=== PATIENT | female | born 1945 | race Caucasian/White ===

== ENCOUNTER 2016-08-05 05:49 | Day surgery (SDC) | payer MEDICARE ==
[2016-08-05] MEDS ORDERED: ACETAMINOPHEN 1000MG/100 ML PREMIX IV ONE (06:00)
[2016-08-05] MEDS ORDERED: HYDROCODONE/APAP 7.5/325MG TABLET PO ONE (13:46)
[2016-08-05] MEDS ORDERED: KETOROLAC 30 MG/ML VIAL IVP ONE (15:05)
[2016-08-05] MEDS ORDERED: ONDANSETRON HCL IV 4 MG/2 ML VIAL IVP ONE (15:05)
[2016-08-05] MEDS ORDERED: FENTANYL PF 100MCG/2ML VIAL IV ONE (15:05)
[2016-08-05] MEDS ORDERED: PROPOFOL 10 MG/ML VIAL IV ONE (15:05)
[2016-08-05] MEDS ORDERED: LIDOCAINE 2% MDV (20MG/ML) 20ML VIAL IV ONE (15:05)
--- NOTE | 2016-08-06 17:06 | Operative Note ---
DATE OF SURGERY: 08/05/2016 REFERRING PHYSICIAN: Long Matamoros DO PREOPERATIVE DIAGNOSIS: Carpal tunnel syndrome of the right wrist. POSTOPERATIVE DIAGNOSIS: Carpal tunnel syndrome of the right wrist. OPERATIVE PROCEDURE: Decompression, right median nerve at the wrist using 3.5 loop magnification. DESCRIPTION: This 71-year-old female was taken to the operating room and placed in a supine position on the operating room table where general anesthesia was induced. The right upper extremity was elevated. It was prepped with Hibiclens and draped in the usual sterile fashion, exsanguinated, and the tourniquet inflated to 250 mmHg. A palmar incision was utilized following the hypothenar crease from the level of the base of the webspace of the thumb, the flexor crease of the wrist. Dissection was carried down through the skin and subcutaneous tissue to expose the subcutaneous tissue of the palmar fascia, which was divided in line with the skin incision. The flexor retinaculum was identified, punctured, split to its proximal margin, and then with the contents of the carpal tunnel under direct vision, the transverse carpal ligament was transected along its ulnar border. The radial flap was raised to expose the entire median nerve under the transverse carpal ligament, and a recurrent motor branch in the median nerve was identified and found to be normal. The patient did have some mild thickening of the tenosynovium; otherwise, the nerve itself appeared to be normal. No other gross pathology was identified. The wound was irrigated with lactated Ringer's solution. The tourniquet was released and hemostasis obtained with the electrocautery. The wound was closed with interrupted 6-0 nylon sutures. Sterile dressings with plaster splint immobilization was applied with the wrist in slight dorsiflexion and the thumb in an adducted position. The patient was then taken to the recovery room in satisfactory condition. GROSS PATHOLOGY: This patient demonstrated some thickening of the tenosynovium overlying the median nerve, but otherwise normal appearance of the nerve was present and recurrent motor branch also seemed to be apparently normal. CC: Janet ANDRADE
== END 2016-08-05 08:38 | disposition home or self-care (01) ==
LOC: SUR 05:49
PROVIDERS: ATTEND Orthopaedic Surgery
DX: G56.01 Carpal tunnel syndrome, right upper limb (principal); I10 Essential (primary) hypertension
CPT/HCPCS: J1885; J2405

== ENCOUNTER 2016-09-09 08:24 | Day surgery (SDC) | payer MEDICARE ==
[~2016-09-09 08:24] MED LIST: ACETAMINOPHEN 1,000 MG/100 ML BTL IV ONE
[2016-09-09] MEDS ORDERED: ROPIVACAINE HCL (NAROPIN) /PF 5MG/ML 20ML VIAL IV ONE ×2 (14:00→14:12)
[2016-09-09] MEDS ORDERED: FENTANYL PF 100MCG/2ML VIAL IV ONE (14:00)
[2016-09-09] MEDS ORDERED: ONDANSETRON HCL IV 4 MG/2 ML VIAL IVP ONE (14:00)
[2016-09-09] MEDS ORDERED: PROPOFOL 10 MG/ML VIAL IV ONE (14:00)
[2016-09-09] MEDS ORDERED: LIDOCAINE 2% MDV (20MG/ML) 20ML VIAL IV ONE (14:00)
[2016-09-09] MEDS ORDERED: SEVOFLURANE 250 ML INH ONE (14:00)
[2016-09-09] MEDS ORDERED: KETOROLAC 30 MG/ML VIAL IVP ONE (14:00)
[2016-09-09] MEDS ORDERED: MIDAZOLAM HCL 2MG/2ML VIAL IV ONE (14:00)
--- NOTE | 2016-09-14 15:51 | Operative Note ---
DATE OF SURGERY: 09/09/2016 Surgeon: Kirby Ortega DO PREOPERATIVE DIAGNOSIS: Carpal tunnel syndrome, left wrist. POSTOPERATIVE DIAGNOSIS: Carpal tunnel syndrome, left wrist. OPERATION: Decompression of left median nerve of the wrist using 3.5 loop magnification. PROCEDURE: This 71-year-old female was taken to the operating room, placed in a supine position on the operating room table where general anesthesia was induced. The left upper extremity was elevated. It was prepped with Hibiclens and draped in the usual sterile fashion. A palmar incision was utilized following hypothenar crease from the level of the base of the web space of the thumb to the flexor crease at the wrist. Dissection carried down through the skin and subcutaneous tissue. Hemostasis obtained with the electrocautery. Palmar fascia was divided in line with the skin incision to expose the flexor retinaculum. This was punctured, split to its proximal margin, and then when the contents of the carpal tunnel under direct vision the transverse carpal ligament was transected along its ulnar border and the radial flap was raised to expose the entire median nerve under the transverse carpal ligament. The nerve itself appeared to be normal other than very minimal amount of atrophy of the nerve. The recurrent motor branch was seen to be intact. The tourniquet was subsequently released and hemostasis obtained with the electrocautery. The wound was irrigated with lactated Ringer solution and the wound closed with interrupted 6-0 nylon suture. Sterile dressings were applied with plaster splint immobilization with the wrist in slight dorsiflexion and the thumb in an adducted position. The patient was then taken to the recovery room in satisfactory condition. GROSS PATHOLOGY: The patient had very minimal atrophy of the median nerve but otherwise appeared to be normal. The operative procedure was performed under 3.5 loop magnification. CC: Janet ANDRADE
== END 2016-09-09 11:50 | disposition home or self-care (01) ==
LOC: SUR 08:24
PROVIDERS: ATTEND Orthopaedic Surgery
DX: G56.02 Carpal tunnel syndrome, left upper limb (principal); I10 Essential (primary) hypertension
CPT/HCPCS: 64721; 01810; 64450; J1885; J2405; J3010; J2795; 01992; 76942

== ENCOUNTER 2016-10-03 15:58 | Emergency (ER) | payer MEDICARE ==
--- NOTE | 2016-10-03 18:03 | Emergency Department Record ---
History of Present Illness - General Chief complaint: Bite Insect/other Stated complaint: INSECT BITE LT FOOT Time Seen by Provider: 10/03/16 17:53 Mode of Arrival: Ambulatory - History of Present Illness Initial comments: ulcer on left ankle which started as a blister and than started neosporin but she is allergic to that and came i to the ED today and patient stated she removed the blister on tues and using peroxide and salve every day. Onset/Timin -: Days(s) Hx Tetanus Toxoid Vaccination: Yes Year of Tetanus Vaccination: unkown Location: LLE, R foot Consistency: Constant Improves with: None Worsens with: None Associated symptoms: Itching Treatments Prior to Arrival: OTC topical medication - Related Data Home Medications Medication Instructions Recorded Confirmed Last Taken Amlodipine Besylate [Amlodipine 5 mg PO DAILY 11/14/13 10/03/16 10/03/16 Besylate] Bupropion HCl [Bupropion HCl Sr] 150 mg PO BID 11/15/14 10/03/16 10/03/16 Temazepam [Restoril] 30 mg PO QHS PRN 11/15/14 10/03/16 10/03/16 Loperamide HCl [Immodium] 2 mg PO BID PRN 05/25/15 10/03/16 10/03/16 Aspirin [Adult Low Dose Aspirin EC] 81 mg PO DAILY 07/03/16 10/03/16 10/03/16 Calcium Carbonate/Vitamin D3 2 each PO DAILY 07/03/16 10/03/16 10/03/16 [Oyster Shell Calcium-Vit D Tab] Ferrous Sulfate [High Potency Iron] 1 tab PO DAILY 07/03/16 10/03/16 10/03/16 Hydrocodone/Acetaminophen 1 tab PO ASDIR 07/03/16 10/03/16 10/03/16 [Hydrocodon-Acetaminophn 10-325] Melatonin 5 mg PO QHS 07/03/16 10/03/16 10/03/16 Tramadol HCl 50 mg PO ASDIR 07/03/16 10/03/16 10/03/16 Cyanocobalamin (Vitamin B-12) 2,500 mcg PO DAILY 10/03/16 10/03/16 10/03/16 [Vitamin B12] Previous Rx's Medication Instructions Recorded Lorazepam [Ativan] 1 mg PO Q12H PRN #6 tab 11/15/14 Cephalexin [Keflex] 500 mg PO TID #30 cap 10/03/16 Sulfamethoxazole/Trimethoprim 1 each PO BID #20 tablet 10/03/16 [Bactrim Ds Tablet] Allergies Allergy/AdvReac Type Severity Reaction Status Date / Time bacitracin Allergy Unknown ITCHING Verified 10/03/16 17:11 [From NEOSPORIN ([id number])] bacitracin zinc Allergy Unknown ITCHING Verified 10/03/16 17:11 [From NEOSPORIN ([id number])] neomycin sulfate Allergy Unknown ITCHING Verified 10/03/16 17:11 [From NEOSPORIN ([id number])] polymyxin B Allergy Unknown ITCHING Verified 10/03/16 17:11 [From NEOSPORIN ([id number])] Travel Screening - Travel/Exposure Within Last 30 Days Have you traveled within the last 30 days?: No - Travel/Exposure Within Last Year Have you traveled outside the [place] in the last year?: No - Additonal Travel Details Have you been exposed to anyone with a communicable illness?: No Review of Systems Reviewed: No additional complaints except as noted below Constitutional: Reports: As per HPI. Denies: Chills, Fever, Malaise, Night sweats, Weakness, Weight change Eyes: Reports: As per HPI. Denies: Eye discharge, Eye pain, Photophobia, Vision change ENT: Reports: As per HPI. Denies: Congestion, Dental pain, Ear pain, Epistaxis , Hearing loss, Throat pain Respiratory: Reports: As per HPI. Denies: Cough, Dyspnea, Hemoptysis, Stridor, Wheezes Cardiovascular: Reports: As per HPI. Denies: Arrhythmia, Chest pain, Dyspnea on exertion, Edema, Murmurs, Orthopnea, Palpitations, Paroxysmal nocturnal dyspnea, Rheumatic Fever, Syncope Endocrine: Reports: As per HPI. Denies: Fatigue, Heat or cold intolerance, Polydipsia, Polyuria Gastrointestinal: Reports: As per HPI. Denies: Abdominal pain, Constipation, Diarrhea, Hematemesis, Hematochezia, Melena, Nausea, Vomiting Genitourinary: Reports: As per HPI. Denies: Abnormal menses, Discharge, Dyspareunia, Dysuria, Frequency, Hematuria, Incontinence, Retention, Urgency Musculoskeletal: Reports: As per HPI. Denies: Arthralgia, Back pain, Gout, Joint swelling, Myalgia, Neck pain Skin: Reports: As per HPI, Lesions. Denies: Bruising, Change in color, Change in hair/nails, Pruritus, Rash Neurological: Reports: As per HPI. Denies: Abnormal gait, Confusion, Headache, Numbness, Paresthesias, Seizure, Tingling, Tremors, Vertigo, Weakness Psychiatric: Reports: As per HPI. Denies: Anxiety, Auditory hallucinations, Depression, Homicidal thoughts, Suicidal thoughts, Visual hallucinations Hematological/Lymphatic: Reports: As per HPI. Denies: Anemia, Blood Clots, Easy bleeding, Easy bruising, Swollen glands Past Medical History - SOCIAL HISTORY Smoking Status: Never smoker Alcohol Use: None Drug Use: None - RESPIRATORY Hx Respiratory Disorders: Yes Hx of CPAP: Yes (difficult time wearing mask-doesn't use it) - CARDIOVASCULAR Hx Cardio Disorders: Yes Comment:: "I have a bad back" - NEURO Hx Neuro Disorders: Yes Hx of Migraines: Yes - GI Hx GI Disorders: Yes Hx Diverticulitis: Yes Hx Irritable Bowel: Yes (daily Immodium helps alot) Hx Ulcer: Yes (bleeding ulcer 2011) - Hx Genitourinary Disorders: No - ENDOCRINE Hx Endocrine Disorders: Yes Hx Diabetes: Yes (last A1c 5.5) - MUSCULOSKELETAL Hx Musculoskeletal Disorders: Yes Hx Arthritis: Yes (all over) Hx Back Injury: Yes (fell down a flight of stairs 30 yrs ago) Comment:: right carpal tunnel syndrome - PSYCH Hx Psych Problems: Yes Hx Anxiety: Yes Hx Depression: Yes - HEMATOLOGY/ONCOLOGY Hx Hematology/Oncology Disorders: Yes Hx Anemia: Yes Family Medical History Any Significant Family History?: No Hx Cancer: Father, Mother Hx HTN: Brother/Sister Physical Exam - General General Appearance: Alert, Oriented x3, Cooperative, No acute distress - Head Head exam: Normal inspection - Eye Eye exam: Normal appearance, PERRL Pupils: Normal accommodation - ENT ENT exam: Normal exam, Mucous membranes moist, Normal external ear exam, Normal orophraynx, TM's normal bilaterally Ear exam: Normal external inspection. negative: External canal tenderness Nasal Exam: Normal inspection. negative: Discharge, Sinus tenderness Mouth exam: Normal external inspection, Tongue normal Teeth exam: Normal inspection. negative: Dental caries Throat exam: Normal inspection. negative: Tonsillar erythema, Tonsillar exudate - Neck Neck exam: Normal inspection, Full ROM. negative: Tenderness - Respiratory Respiratory exam: Normal lung sounds bilaterally. negative: Respiratory distress - Cardiovascular Cardiovascular Exam: Regular rate, Normal rhythm, Normal heart sounds - GI/Abdominal GI/Abdominal exam: Soft, Normal bowel sounds. negative: Tenderness - Rectal Rectal exam: Deferred - exam: Deferred - Extremities Extremities exam: Normal inspection, Full ROM, Normal capillary refill. negative: Tenderness - Back Back exam: Reports: Normal inspection, Full ROM. Denies: Muscle spasm, Rash noted, Tenderness - Neurological Neurological exam: Alert, Normal gait, Oriented X3, Reflexes normal - Psychiatric Psychiatric exam: Normal affect, Normal mood - Skin Skin exam: Other (ulcer on the right ankle size of a dime) Course Vital Signs 10/03/16 16:44 Temperature 98.7 F Pulse Rate [ 103 H Pulse Ox Probe] Respiratory 21 Rate Blood Pressure 143/87 [Left Arm] Pulse Ox 95 Disposition Clinical Impression: Ulcer Insect bite Qualifiers: Encounter type: initial encounter Qualified Code(s): W57.XXXA - Bitten or stung by nonvenomous insect and other nonvenomous arthropods, initial encounter Condition: (1) Good Instructions: Insect Bite or Sting (ED) Additional Instructions: follow up with Dr. Matamoros in 3 days. wash twice a day with soap Prescriptions: Cephalexin [Keflex] 500 mg PO TID #30 cap Sulfamethoxazole/Trimethoprim [Bactrim Ds Tablet] 1 each PO BID #20 tablet Forms: Patient Portal Access Time of Disposition: 18:05
[2016-10-03] MEDS ORDERED: TMP/SMZ 160MG/800MG TAB PO ONE (18:05)
[2016-10-03] MEDS ORDERED: CEPHALEXIN 500 MG CAPSULE PO STA (18:05)
== END 2016-10-03 18:27 | disposition home or self-care (01) ==
LOC: ER 15:58
DX: E11.621 Type 2 diabetes mellitus with foot ulcer (principal); L97.529 Non-pressure chronic ulcer of other part of left foot with unspecified severity; W57.XXXA Bitten or stung by nonvenomous insect and other nonvenomous arthropods, initial encounter
CPT/HCPCS: 99282

== ENCOUNTER 2017-02-20 12:52 | Emergency (ER) | payer MEDICARE ==
[2017-02-20] MEDS ORDERED: KETOROLAC 30 MG/ML VIAL IM ONE (13:35)
--- NOTE | 2017-02-20 13:35 | Emergency Department Record ---
History of Present Illness - General Chief complaint: Pain Stated complaint: RT HIP/LOWER BACK PAIN Time Seen by Provider: 02/20/17 13:21 Source: Patient Mode of Arrival: Ambulatory Limitations: No limitations - History of Present Illness Initial comments: pt states she is in horrible pain in her hip from chronic issues. she has been scheduled for surgery but is going thru physical therapy first. she states she has been on pain pills for a long time and that her dr took her off them 3 days ago because she has been taking too many. she states the pain is unbearable and she has been having diarrhea. MD Complaint: Joint pain -: Unknown Severity scale (1-10): 10 Quality: Sharp Consistency: Constant Improves with: Nothing Worsens with: Exertion, Walking Associated Symptoms: Denies other symptoms - Related Data Previous Rx's Medication Instructions Recorded Lorazepam [Ativan] 1 mg PO Q12H PRN #6 tab 11/15/14 Gabapentin [Neurontin] 100 mg PO TID #14 capsule 02/20/17 Hydrocodone/Acetaminophen [[place] 1 each PO BID #7 tablet 02/20/17 5-325 Tablet] Lidocaine Patch [Lidoderm] 1 ea TOP DAILY #3 patch 02/20/17 Allergies Allergy/AdvReac Type Severity Reaction Status Date / Time bacitracin Allergy Unknown ITCHING Verified 02/20/17 13:00 [From NEOSPORIN ([id number])] bacitracin zinc Allergy Unknown ITCHING Verified 02/20/17 13:00 [From NEOSPORIN ([id number])] neomycin sulfate Allergy Unknown ITCHING Verified 02/20/17 13:00 [From NEOSPORIN ([id number])] polymyxin B Allergy Unknown ITCHING Verified 02/20/17 13:00 [From NEOSPORIN ([id number])] Travel Screening - Travel/Exposure Within Last 30 Days Have you traveled within the last 30 days?: No - Travel/Exposure Within Last Year Have you traveled outside the [place] in the last year?: No - Additonal Travel Details Have you been exposed to anyone with a communicable illness?: No - Travel Symptoms Symptom Screening: None Review of Systems Reviewed: No additional complaints except as noted below Constitutional: Reports: As per HPI. Denies: Chills, Fever, Malaise, Night sweats, Weakness, Weight change Eyes: Reports: As per HPI. Denies: Eye discharge, Eye pain, Photophobia, Vision change ENT: Reports: As per HPI. Denies: Congestion, Dental pain, Ear pain, Epistaxis , Hearing loss, Throat pain Respiratory: Reports: As per HPI. Denies: Cough, Dyspnea, Hemoptysis, Stridor, Wheezes Cardiovascular: Reports: As per HPI. Denies: Arrhythmia, Chest pain, Dyspnea on exertion, Edema, Murmurs, Orthopnea, Palpitations, Paroxysmal nocturnal dyspnea, Rheumatic Fever, Syncope Endocrine: Reports: As per HPI. Denies: Fatigue, Heat or cold intolerance, Polydipsia, Polyuria Gastrointestinal: Reports: As per HPI. Denies: Abdominal pain, Constipation, Diarrhea, Hematemesis, Hematochezia, Melena, Nausea, Vomiting Genitourinary: Reports: As per HPI. Denies: Abnormal menses, Discharge, Dyspareunia, Dysuria, Frequency, Hematuria, Incontinence, Retention, Urgency Musculoskeletal: Reports: As per HPI. Denies: Arthralgia, Back pain, Gout, Joint swelling, Myalgia, Neck pain Skin: Reports: As per HPI. Denies: Bruising, Change in color, Change in hair/ nails, Lesions, Pruritus, Rash Neurological: Reports: As per HPI. Denies: Abnormal gait, Confusion, Headache, Numbness, Paresthesias, Seizure, Tingling, Tremors, Vertigo, Weakness Psychiatric: Reports: As per HPI. Denies: Anxiety, Auditory hallucinations, Depression, Homicidal thoughts, Suicidal thoughts, Visual hallucinations Hematological/Lymphatic: Reports: As per HPI. Denies: Anemia, Blood Clots, Easy bleeding, Easy bruising, Swollen glands Past Medical History - SOCIAL HISTORY Smoking Status: Never smoker Alcohol Use: None Drug Use: None - RESPIRATORY Hx Respiratory Disorders: Yes Hx of CPAP: Yes (difficult time wearing mask-doesn't use it) - CARDIOVASCULAR Hx Cardio Disorders: Yes Comment:: "I have a bad back" - NEURO Hx Neuro Disorders: Yes Hx of Migraines: Yes - GI Hx GI Disorders: Yes Hx Diverticulitis: Yes Hx Irritable Bowel: Yes (daily Immodium helps alot) Hx Ulcer: Yes (bleeding ulcer 2011) - Hx Genitourinary Disorders: No - ENDOCRINE Hx Endocrine Disorders: Yes Hx Diabetes: Yes (last A1c 5.5) - MUSCULOSKELETAL Hx Musculoskeletal Disorders: Yes Hx Arthritis: Yes (all over) Hx Back Injury: Yes (fell down a flight of stairs 30 yrs ago) Comment:: right carpal tunnel syndrome - PSYCH Hx Psych Problems: Yes Hx Anxiety: Yes Hx Depression: Yes - HEMATOLOGY/ONCOLOGY Hx Hematology/Oncology Disorders: Yes Hx Anemia: Yes Family Medical History Any Significant Family History?: Yes Hx Cancer: Father, Mother Hx HTN: Brother/Sister Physical Exam - General General Appearance: Alert, Oriented x3, Cooperative, Moderate distress - Head Head exam: Normal inspection - Eye Eye exam: Normal appearance, PERRL, EOMI Pupils: Normal accommodation - ENT ENT exam: Normal exam, Mucous membranes moist, Normal external ear exam, Normal orophraynx, TM's normal bilaterally Ear exam: Normal external inspection. negative: External canal tenderness Nasal Exam: Normal inspection. negative: Discharge, Sinus tenderness Mouth exam: Normal external inspection, Tongue normal Teeth exam: Normal inspection. negative: Dental caries Throat exam: Normal inspection. negative: Tonsillar erythema, Tonsillar exudate - Neck Neck exam: Normal inspection, Full ROM. negative: Tenderness - Respiratory Respiratory exam: Normal lung sounds bilaterally. negative: Respiratory distress - Cardiovascular Cardiovascular Exam: Regular rate, Normal rhythm, Normal heart sounds - GI/Abdominal GI/Abdominal exam: Soft, Normal bowel sounds. negative: Tenderness - Rectal Rectal exam: Deferred - exam: Deferred - Extremities Extremities exam: Normal inspection, Normal capillary refill, Tenderness. negative: Full ROM - Back Back exam: Reports: Normal inspection, Full ROM. Denies: Muscle spasm, Rash noted, Tenderness - Neurological Neurological exam: Alert, CN II-XII intact, Normal gait, Oriented X3 - Psychiatric Psychiatric exam: Normal affect, Normal mood - Skin Skin exam: Dry, Intact, Normal color, Warm Course Vital Signs 02/20/17 13:05 Temperature 98.2 F Pulse Rate 95 H Respiratory 18 Rate Blood Pressure 163/100 Pulse Ox 97 Disposition Disposition: Discharge Clinical Impression: Narcotic withdrawal Hip pain Qualifiers: Laterality: right Qualified Code(s): M25.551 - Pain in right hip Disposition: Home, Self-Care Condition: (1) Good Instructions: Pain Management in the Elderly (ED), Opioid Withdrawal (ED), Gabapentin (By mouth) Additional Instructions: follow up with family doctor and with orthopedic doctor.. return sooner if worse. moist heat to hip. taper norco down. Prescriptions: Gabapentin [Neurontin] 100 mg PO TID #14 capsule Hydrocodone/Acetaminophen [[place] 5-325 Tablet] 1 each PO BID #7 tablet Lidocaine Patch [Lidoderm] 1 ea TOP DAILY #3 patch Forms: Patient Portal Access Quality - Quality Measures Quality Measures: N/A - Blood Pressure Screening Does Patient Have Any of the Following: No Blood Pressure Classification: Hypertensive Reading Systolic Measurement: 163 Diastolic Measurement: 100 Screening for High Blood Pressure: < First Hypertensive BP, F/U Documented > [ [id number]] First Hypertensive Follow-up Interventions: Follow-up with rescreen GT 1 day and LT 4 weeks.
== END 2017-02-20 14:24 | disposition home or self-care (01) ==
LOC: ER 12:52
DX: F11.23 Opioid dependence with withdrawal (principal); K52.1 Toxic gastroenteritis and colitis; T40.2X5A Adverse effect of other opioids, initial encounter; G89.29 Other chronic pain; M25.551 Pain in right hip
CPT/HCPCS: 99283 ×2; 96372; J1885

== ENCOUNTER 2017-03-30 12:42 | Emergency (ER) | payer MEDICARE ==
--- NOTE | 2017-03-30 13:37 | Emergency Department Record ---
History of Present Illness - General Chief complaint: Lower Extremity Pain Stated complaint: RT UPPER LEG PAIN Time Seen by Provider: 03/30/17 12:54 Mode of Arrival: Ambulatory - History of Present Illness Onset/Timin -: Days(s) Location: Right, Thigh History of Same: No Severity scale (1-10): 10 Quality: Aching Consistency: Constant Improves with: Nothing Worsens with: Walking, Weight bearing Associated Symptoms: Denies other symptoms - Related Data Previous Rx's Medication Instructions Recorded Lorazepam [Ativan] 1 mg PO Q12H PRN #6 tab 11/15/14 Gabapentin [Neurontin] 100 mg PO TID #14 capsule 02/20/17 Famciclovir 500 mg PO TID #28 tablet 03/30/17 Allergies Allergy/AdvReac Type Severity Reaction Status Date / Time bacitracin Allergy Unknown ITCHING Verified 02/20/17 13:00 [From NEOSPORIN ([id number])] bacitracin zinc Allergy Unknown ITCHING Verified 02/20/17 13:00 [From NEOSPORIN ([id number])] neomycin sulfate Allergy Unknown ITCHING Verified 02/20/17 13:00 [From NEOSPORIN ([id number])] polymyxin B Allergy Unknown ITCHING Verified 02/20/17 13:00 [From NEOSPORIN ([id number])] Travel Screening - Travel/Exposure Within Last 30 Days Have you traveled within the last 30 days?: No Review of Systems Reviewed: No additional complaints except as noted below Constitutional: Reports: As per HPI. Denies: Chills, Fever, Malaise, Night sweats, Weakness, Weight change Eyes: Reports: As per HPI. Denies: Eye discharge, Eye pain, Photophobia, Vision change ENT: Reports: As per HPI. Denies: Congestion, Dental pain, Ear pain, Epistaxis , Hearing loss, Throat pain Respiratory: Reports: As per HPI. Denies: Cough, Dyspnea, Hemoptysis, Stridor, Wheezes Cardiovascular: Reports: As per HPI. Denies: Arrhythmia, Chest pain, Dyspnea on exertion, Edema, Murmurs, Orthopnea, Palpitations, Paroxysmal nocturnal dyspnea, Rheumatic Fever, Syncope Endocrine: Reports: As per HPI. Denies: Fatigue, Heat or cold intolerance, Polydipsia, Polyuria Gastrointestinal: Reports: As per HPI. Denies: Abdominal pain, Constipation, Diarrhea, Hematemesis, Hematochezia, Melena, Nausea, Vomiting Genitourinary: Reports: As per HPI. Denies: Abnormal menses, Discharge, Dyspareunia, Dysuria, Frequency, Hematuria, Incontinence, Retention, Urgency Musculoskeletal: Reports: As per HPI. Denies: Arthralgia, Back pain, Gout, Joint swelling, Myalgia, Neck pain Skin: Reports: As per HPI, Rash (right thigh area). Denies: Bruising, Change in color, Change in hair/nails, Lesions, Pruritus Neurological: Reports: As per HPI. Denies: Abnormal gait, Confusion, Headache, Numbness, Paresthesias, Seizure, Tingling, Tremors, Vertigo, Weakness Psychiatric: Reports: As per HPI. Denies: Anxiety, Auditory hallucinations, Depression, Homicidal thoughts, Suicidal thoughts, Visual hallucinations Hematological/Lymphatic: Reports: As per HPI. Denies: Anemia, Blood Clots, Easy bleeding, Easy bruising, Swollen glands Past Medical History - SOCIAL HISTORY Smoking Status: Never smoker Alcohol Use: None Drug Use: None - RESPIRATORY Hx Respiratory Disorders: Yes Hx of CPAP: Yes (difficult time wearing mask-doesn't use it) - CARDIOVASCULAR Hx Cardio Disorders: Yes Comment:: "I have a bad back" - NEURO Hx Neuro Disorders: Yes Hx of Migraines: Yes - GI Hx GI Disorders: Yes Hx Diverticulitis: Yes Hx Irritable Bowel: Yes (daily Immodium helps alot) Hx Ulcer: Yes (bleeding ulcer 2011) - Hx Genitourinary Disorders: No - ENDOCRINE Hx Endocrine Disorders: Yes Hx Diabetes: Yes (last A1c 5.5) - MUSCULOSKELETAL Hx Musculoskeletal Disorders: Yes Hx Arthritis: Yes (all over) Hx Back Injury: Yes (fell down a flight of stairs 30 yrs ago) Comment:: right carpal tunnel syndrome - PSYCH Hx Psych Problems: Yes Hx Anxiety: Yes Hx Depression: Yes - HEMATOLOGY/ONCOLOGY Hx Hematology/Oncology Disorders: Yes Hx Anemia: Yes Family Medical History Any Significant Family History?: Yes Hx Cancer: Father, Mother Hx HTN: Brother/Sister Physical Exam - General General Appearance: Alert, Oriented x3, Cooperative, No acute distress - Head Head exam: Normal inspection - Eye Eye exam: Normal appearance, PERRL Pupils: Normal accommodation - ENT ENT exam: Normal exam, Mucous membranes moist, Normal external ear exam, Normal orophraynx, TM's normal bilaterally Ear exam: Normal external inspection. negative: External canal tenderness Nasal Exam: Normal inspection. negative: Discharge, Sinus tenderness Mouth exam: Normal external inspection, Tongue normal Teeth exam: Normal inspection. negative: Dental caries Throat exam: Normal inspection. negative: Tonsillar erythema, Tonsillar exudate - Neck Neck exam: Normal inspection, Full ROM. negative: Tenderness - Respiratory Respiratory exam: Normal lung sounds bilaterally. negative: Respiratory distress - Cardiovascular Cardiovascular Exam: Regular rate, Normal rhythm, Normal heart sounds - GI/Abdominal GI/Abdominal exam: Soft, Normal bowel sounds. negative: Tenderness - Rectal Rectal exam: Deferred - exam: Deferred - Extremities Extremities exam: Normal inspection, Full ROM, Normal capillary refill, Tenderness (right thigh pain ansd rash over the pain) - Back Back exam: Reports: Normal inspection, Full ROM. Denies: Muscle spasm, Rash noted, Tenderness - Neurological Neurological exam: Alert, Normal gait, Oriented X3, Reflexes normal - Psychiatric Psychiatric exam: Normal affect, Normal mood - Skin Skin exam: Dry, Intact, Normal color, Warm Course Vital Signs 03/30/17 12:57 Temperature 97.8 F Pulse Rate 125 H Respiratory 20 Rate Blood Pressure 156/118 Pulse Ox 93 L Disposition Clinical Impression: Pain in right thigh Shingles Qualifiers: Herpes zoster complications: without complications Qualified Code(s): B02.9 - Zoster without complications Disposition: Home, Self-Care Condition: (1) Good Instructions: Shingles (ED) Additional Instructions: follow up with family Dr. salcido 2 pill twice a day Prescriptions: Famciclovir 500 mg PO TID #28 tablet Forms: Patient Portal Access Time of Disposition: 13:36 Quality - Quality Measures Quality Measures: N/A - Blood Pressure Screening Does Patient Have Any of the Following: No Blood Pressure Classification: Hypertensive Reading Systolic Measurement: 156 Diastolic Measurement: 118 Screening for High Blood Pressure: < First Hypertensive BP, F/U Documented > [ G8950] First Hypertensive Follow-up Interventions: Referral to alternative/primary care provider.
[2017-03-30] MEDS: KETOROLAC 60 MG/2 ML VIAL IM STA (13:41)
== END 2017-03-30 14:06 | disposition home or self-care (01) ==
LOC: ER 12:42
DX: B02.9 Zoster without complications (principal); M79.651 Pain in right thigh
CPT/HCPCS: 96372; 99283; J1885

== ENCOUNTER 2017-04-07 16:07 | Emergency (ER) | payer MEDICARE ==
--- NOTE | 2017-04-07 16:35 | Emergency Department Record ---
History of Present Illness - General Chief complaint: Extremity Problem Stated complaint: PAIN IN RT THEIGH Time Seen by Provider: 04/07/17 16:31 Source: Patient Mode of Arrival: Ambulatory Limitations: No limitations - History of Present Illness Initial comments: The patient is here due to R thigh pain for 3-4 days. The patient was recently here in the ER 8 days ago and diagnosed with Shingles to the anterior proximal R thigh. She is still on her antivirals and now is having increased pain to the anterior mid to distal thigh. The rash has resolved but the pain is worsening. She denies any weakness, numbness, or tingling to the lower leg. The patient also denies any trauma or injury. MD Complaint: Extremity pain Onset/Timin -: Days(s) Location: Right, Thigh History of Same: Yes Severity scale (1-10): 10 Quality: Stabbing Consistency: Constant Improves with: Nothing Worsens with: Nothing Associated Symptoms: Denies other symptoms - Related Data Previous Rx's Medication Instructions Recorded Lorazepam [Ativan] 1 mg PO Q12H PRN #6 tab 11/15/14 Gabapentin [Neurontin] 100 mg PO TID #14 capsule 02/20/17 Famciclovir 500 mg PO TID #28 tablet 03/30/17 Lidocaine Patch [Lidoderm] 1 ea TOP DAILY #7 patch 04/07/17 Naproxen [Naprosyn] 250 mg PO BID #14 tablet 04/07/17 Allergies Allergy/AdvReac Type Severity Reaction Status Date / Time bacitracin Allergy Unknown ITCHING Verified 04/07/17 16:12 [From NEOSPORIN ([id number])] bacitracin zinc Allergy Unknown ITCHING Verified 04/07/17 16:12 [From NEOSPORIN ([id number])] neomycin sulfate Allergy Unknown ITCHING Verified 04/07/17 16:12 [From NEOSPORIN ([id number])] polymyxin B Allergy Unknown ITCHING Verified 04/07/17 16:12 [From NEOSPORIN ([id number])] Travel Screening - Travel/Exposure Within Last 30 Days Have you traveled within the last 30 days?: No - Travel/Exposure Within Last Year Have you traveled outside the [place] in the last year?: No - Additonal Travel Details Have you been exposed to anyone with a communicable illness?: No - Travel Symptoms Symptom Screening: None Review of Systems Constitutional: Denies: Chills, Fever Eyes: Denies: Eye discharge ENT: Denies: Congestion Respiratory: Denies: Cough Past Medical History - SOCIAL HISTORY Smoking Status: Never smoker Alcohol Use: None Drug Use: None - RESPIRATORY Hx Respiratory Disorders: Yes Hx of CPAP: Yes (difficult time wearing mask-doesn't use it) - CARDIOVASCULAR Hx Cardio Disorders: Yes Comment:: "I have a bad back" - NEURO Hx Neuro Disorders: Yes Hx of Migraines: Yes - GI Hx GI Disorders: Yes Hx Diverticulitis: Yes Hx Irritable Bowel: Yes (daily Immodium helps alot) Hx Ulcer: Yes (bleeding ulcer 2011) - Hx Genitourinary Disorders: No - ENDOCRINE Hx Endocrine Disorders: Yes Hx Diabetes: Yes (last A1c 5.5) - MUSCULOSKELETAL Hx Musculoskeletal Disorders: Yes Hx Arthritis: Yes (all over) Hx Back Injury: Yes (fell down a flight of stairs 30 yrs ago) Comment:: right carpal tunnel syndrome - PSYCH Hx Psych Problems: Yes Hx Anxiety: Yes Hx Depression: Yes - HEMATOLOGY/ONCOLOGY Hx Hematology/Oncology Disorders: Yes Hx Anemia: Yes Family Medical History Any Significant Family History?: Yes Hx Cancer: Father, Mother Hx HTN: Brother/Sister Physical Exam - General General Appearance: Alert, Cooperative, No acute distress - Head Head exam: Atraumatic, Normocephalic, Normal inspection - Eye Eye exam: Normal appearance, PERRL - Neck Neck exam: Normal inspection, Full ROM. negative: Tenderness - Respiratory Respiratory exam: Normal lung sounds bilaterally. negative: Respiratory distress - Cardiovascular Cardiovascular Exam: Regular rate, Normal rhythm, Normal heart sounds - GI/Abdominal GI/Abdominal exam: Soft, Normal bowel sounds. negative: Tenderness - Extremities Extremities exam: Normal inspection, Full ROM, Normal capillary refill, Tenderness (There is tenderness to the anterior R mid to distal thigh. There is no swelling, bruising, erythema or lesions appreciated.), Other (The RLE is NVI with normal pulses.). negative: Calf tenderness (There is no calf tenderness or edema.), Joint swelling, Pedal edema - Neurological Neurological exam: Alert, Normal gait, Oriented X3. negative: Abnormal gait, Altered, Motor sensory deficit - Skin Skin exam: negative: Rash Course Vital Signs 04/07/17 16:16 Temperature 97.8 F Pulse Rate 100 H Respiratory 20 Rate Blood Pressure 152/91 Pulse Ox 97 - Reevaluation(s) Reevaluation #1: The patient is doing better at this time. She states the pain is much improved and she is up walking with no difficulty. I did explain to her that I believe the pain most likely is post-herpetic neuralgia in origin. She is to take Naprosyn for pain and use her Lidoderm patches on the affected area and see her PCP next week for recheck. 04/07/17 17:32 Medical Decision Making - Data Complexity MDM Data: Labs Ordered and/or Reviewed, X-Ray Ordered and/or Reviewed - Lab Data Result diagrams: 04/07/17 16:40 04/07/17 16:40 - Radiology Data Radiology results: Report reviewed (R Femur: No acute changes.) Disposition Disposition: Discharge Clinical Impression: Post herpetic neuralgia Disposition: Home, Self-Care Condition: (2) Stable Instructions: Shinglkash (ED) Additional Instructions: Please use the Naprosyn and Lidoderm as directed. Please see your PCP next week for recheck. Return to the ER for any worsening symptoms. Prescriptions: Lidocaine Patch [Lidoderm] 1 ea TOP DAILY #7 patch Naproxen [Naprosyn] 250 mg PO BID #14 tablet Forms: Patient Portal Access Time of Disposition: 17:35 Quality - Quality Measures Quality Measures: N/A - Blood Pressure Screening View Details: Yes Does Patient Have Any of the Following: No Blood Pressure Classification: Pre-Hypertensive BP Reading Systolic Measurement: 148 Diastolic Measurement: 86 Screening for High Blood Pressure: < Pre-Hypertensive BP, F/U Documented > [ G8950] Pre-Hypertensive Follow-up Interventions: Referral to alternative/primary care provider.
[2017-04-07 16:48] LABS: BASO % 0.4 % (0-6); EOS % 5.3 % (0-6); GRAN % 70.9 % (47-80); HEMATOCRIT 39.3 % (35.0-47.0); HEMOGLOBIN 12.6 gm/dl (11.6-16.0); LYMPH % 11.9 % (16-45); MEAN CORPUSCULAR HEMOGLOBIN 31.1 pg (27-33); MEAN CORPUSCULAR HGB CONC 32.1 g/dl (32-36); MEAN PLATELET VOLUME 10.7 fl (7.4-10.4); MONO % 11.5 % (0-9); PLATELET COUNT 390 K/uL (130-400); RED BLOOD COUNT 4.05 M/uL (3.80-5.40); RED CELL DISTRIBUTION WIDTH 16.1 % (11.5-14.5); WHITE BLOOD COUNT W/O DIFF 4.9 K/uL (4.2-12.2)
[2017-04-07 17:01] LABS: BLOOD UREA NITROGEN 15 mg/dL (8-23); CREATININE 0.7 mg/dL (0.5-0.9); EST GLOMERULAR FILTRATION RATE > 60 mL/min
[2017-04-07 17:04] LABS: GLUCOSE,RANDOM 103 mg/dL (74-109)
[2017-04-07 17:07] LABS: C-REACTIVE PROTEIN < 0.05 mg/dL (<0.5)
[2017-04-07] MEDS ORDERED: KETOROLAC 30 MG/ML VIAL IM ONE (17:10)
--- NOTE | 2017-04-08 09:34 | RADIOLOGY REPORT ---
EXAM: RIGHT FEMUR HISTORY: MID RIGHT FEMUR PAIN. TECHNIQUE: Two views of the right femur were obtained. Comparison: None. FINDINGS: There is a right hip prosthesis present. There is no fracture or dislocation. Arthritic changes are present in the right knee. IMPRESSION: 1. THERE IS A RIGHT HIP PROSTHESIS. 2. NO FRACTURE OR ACUTE FEMUR ABNORMALITY IDENTIFIED. 3. ARTHRITIC CHANGES RIGHT KNEE MOST PROMINENT IN THE PATELLOFEMORAL JOINT. JOB NUMBER: [id number] [facility]
== END 2017-04-07 17:45 | disposition home or self-care (01) ==
LOC: ER 16:07
DX: B02.29 Other postherpetic nervous system involvement (principal); M79.651 Pain in right thigh
CPT/HCPCS: 99283; 96372; 99284; 85025; 86140; 80048; 73552; J1885

== ENCOUNTER 2017-04-08 07:15 | Emergency (ER) | payer MEDICARE ==
[2017-04-08] MEDS ORDERED: KETOROLAC 30 MG/ML VIAL IM ONE (07:53)
[2017-04-08] MEDS ORDERED: GABAPENTIN 100 MG CAPSULE PO ONE (07:59)
[2017-04-08] MEDS ORDERED: GABAPENTIN 100 MG CAPSULE PO SCH (08:00)
--- NOTE | 2017-04-08 08:20 | Emergency Department Record ---
History of Present Illness - General Chief complaint: Pain Stated complaint: leg pain Time Seen by Provider: 04/08/17 07:25 Source: Patient Mode of Arrival: Ambulatory Limitations: No limitations - History of Present Illness Initial comments: pt is having continuing pain in r leg. she was dxd w shingles last week. she had neg xrays last week MD Complaint: Extremity pain Onset/Timin -: Days(s) Location: Right, Thigh History of Same: Yes Radiation: None Severity scale (1-10): 10 Quality: Aching, Sharp Consistency: Constant Improves with: Nothing Worsens with: Nothing Associated Symptoms: Denies other symptoms - Related Data Previous Rx's Medication Instructions Recorded Lorazepam [Ativan] 1 mg PO Q12H PRN #6 tab 11/15/14 Gabapentin [Neurontin] 100 mg PO TID #14 capsule 02/20/17 Famciclovir 500 mg PO TID #28 tablet 03/30/17 Lidocaine Patch [Lidoderm] 1 ea TOP DAILY #7 patch 04/07/17 Naproxen [Naprosyn] 250 mg PO BID #14 tablet 04/07/17 Allergies Allergy/AdvReac Type Severity Reaction Status Date / Time bacitracin Allergy Unknown ITCHING Verified 04/07/17 16:12 [From NEOSPORIN ([id number])] bacitracin zinc Allergy Unknown ITCHING Verified 04/07/17 16:12 [From NEOSPORIN ([id number])] neomycin sulfate Allergy Unknown ITCHING Verified 04/07/17 16:12 [From NEOSPORIN ([id number])] polymyxin B Allergy Unknown ITCHING Verified 04/07/17 16:12 [From NEOSPORIN ([id number])] Travel Screening - Travel/Exposure Within Last 30 Days Have you traveled within the last 30 days?: No Review of Systems Reviewed: No additional complaints except as noted below Constitutional: Reports: As per HPI. Denies: Chills, Fever, Malaise, Night sweats, Weakness, Weight change Eyes: Reports: As per HPI. Denies: Eye discharge, Eye pain, Photophobia, Vision change ENT: Reports: As per HPI. Denies: Congestion, Dental pain, Ear pain, Epistaxis , Hearing loss, Throat pain Respiratory: Reports: As per HPI. Denies: Cough, Dyspnea, Hemoptysis, Stridor, Wheezes Cardiovascular: Reports: As per HPI. Denies: Arrhythmia, Chest pain, Dyspnea on exertion, Edema, Murmurs, Orthopnea, Palpitations, Paroxysmal nocturnal dyspnea, Rheumatic Fever, Syncope Endocrine: Reports: As per HPI. Denies: Fatigue, Heat or cold intolerance, Polydipsia, Polyuria Gastrointestinal: Reports: As per HPI. Denies: Abdominal pain, Constipation, Diarrhea, Hematemesis, Hematochezia, Melena, Nausea, Vomiting Genitourinary: Reports: As per HPI. Denies: Abnormal menses, Discharge, Dyspareunia, Dysuria, Frequency, Hematuria, Incontinence, Retention, Urgency Musculoskeletal: Reports: As per HPI. Denies: Arthralgia, Back pain, Gout, Joint swelling, Myalgia, Neck pain Skin: Reports: As per HPI. Denies: Bruising, Change in color, Change in hair/ nails, Lesions, Pruritus, Rash Neurological: Reports: As per HPI. Denies: Abnormal gait, Confusion, Headache, Numbness, Paresthesias, Seizure, Tingling, Tremors, Vertigo, Weakness Psychiatric: Reports: As per HPI. Denies: Anxiety, Auditory hallucinations, Depression, Homicidal thoughts, Suicidal thoughts, Visual hallucinations Hematological/Lymphatic: Reports: As per HPI. Denies: Anemia, Blood Clots, Easy bleeding, Easy bruising, Swollen glands Past Medical History - SOCIAL HISTORY Smoking Status: Never smoker Alcohol Use: None Drug Use: None - RESPIRATORY Hx Respiratory Disorders: Yes Hx of CPAP: Yes (difficult time wearing mask-doesn't use it) - CARDIOVASCULAR Hx Cardio Disorders: Yes Comment:: "I have a bad back" - NEURO Hx Neuro Disorders: Yes Hx of Migraines: Yes - GI Hx GI Disorders: Yes Hx Diverticulitis: Yes Hx Irritable Bowel: Yes (daily Immodium helps alot) Hx Ulcer: Yes (bleeding ulcer 2011) - Hx Genitourinary Disorders: No - ENDOCRINE Hx Endocrine Disorders: Yes Hx Diabetes: Yes (last A1c 5.5) - MUSCULOSKELETAL Hx Musculoskeletal Disorders: Yes Hx Arthritis: Yes (all over) Hx Back Injury: Yes (fell down a flight of stairs 30 yrs ago) Comment:: right carpal tunnel syndrome - PSYCH Hx Psych Problems: Yes Hx Anxiety: Yes Hx Depression: Yes - HEMATOLOGY/ONCOLOGY Hx Hematology/Oncology Disorders: Yes Hx Anemia: Yes Family Medical History Any Significant Family History?: Yes Hx Cancer: Father, Mother Hx HTN: Brother/Sister Physical Exam - General General Appearance: Alert, Oriented x3, Cooperative, Mild distress - Head Head exam: Normal inspection - Eye Eye exam: Normal appearance, PERRL, EOMI Pupils: Normal accommodation - ENT ENT exam: Normal exam, Mucous membranes moist, Normal external ear exam, Normal orophraynx Ear exam: Normal external inspection. negative: External canal tenderness Nasal Exam: Normal inspection. negative: Discharge, Sinus tenderness Mouth exam: Normal external inspection, Tongue normal Teeth exam: Normal inspection. negative: Dental caries Throat exam: Normal inspection. negative: Tonsillar erythema, Tonsillar exudate - Neck Neck exam: Normal inspection, Full ROM. negative: Tenderness - Respiratory Respiratory exam: Normal lung sounds bilaterally. negative: Respiratory distress - Cardiovascular Cardiovascular Exam: Normal rhythm, Normal heart sounds, Tachycardia - GI/Abdominal GI/Abdominal exam: Soft, Normal bowel sounds. negative: Tenderness - Rectal Rectal exam: Deferred - exam: Deferred - Extremities Extremities exam: Normal inspection, Full ROM, Normal capillary refill, Tenderness - Back Back exam: Reports: Normal inspection, Full ROM. Denies: Muscle spasm, Rash noted, Tenderness - Neurological Neurological exam: Alert, CN II-XII intact, Normal gait, Oriented X3 - Psychiatric Psychiatric exam: Normal affect, Normal mood - Skin Skin exam: Dry, Intact, Normal color, Warm Course Vital Signs 04/08/17 07:23 Temperature 98.4 F Pulse Rate 105 H Respiratory 19 Rate Blood Pressure 151/89 Pulse Ox 96 - Reevaluation(s) Reevaluation #1: 04/08/17 08:20 i told pt i was going to start her on neurontin when she then told me she has a rx waiting at [facility] for it from dr bonilla. Disposition Disposition: Discharge Clinical Impression: Post herpetic neuralgia Disposition: Home, Self-Care Condition: (1) Good Instructions: Pain Management in the Elderly (ED), Shingles (ED) Additional Instructions: follow up with family doctor. return sooner if worse Quality - Quality Measures Quality Measures: N/A - Blood Pressure Screening Does Patient Have Any of the Following: No Blood Pressure Classification: Pre-Hypertensive BP Reading Systolic Measurement: 151 Diastolic Measurement: 89 Screening for High Blood Pressure: < Pre-Hypertensive BP, F/U Documented > [ G8950] Pre-Hypertensive Follow-up Interventions: Follow-up with rescreen every year.
== END 2017-04-08 08:45 | disposition home or self-care (01) ==
LOC: ER 07:15
DX: B02.29 Other postherpetic nervous system involvement (principal); M79.651 Pain in right thigh
CPT/HCPCS: 99283 ×2; 96372; J1885

== ENCOUNTER 2017-04-19 09:27 | Emergency (ER) | payer MEDICARE ==
[2017-04-19] MEDS ORDERED: KETOROLAC 30 MG/ML VIAL IVP ONE (09:45)
[2017-04-19 09:58] LABS: BASO % 0.6 % (0-6); EOS % 7.6 % (0-6); GRAN % 61.9 % (47-80); HEMATOCRIT 41.1 % (35.0-47.0); HEMOGLOBIN 12.9 gm/dl (11.6-16.0); LYMPH % 17.5 % (16-45); MEAN CELL VOLUME 97.4 fl (81-97); MEAN CORPUSCULAR HEMOGLOBIN 30.6 pg (27-33); MEAN CORPUSCULAR HGB CONC 31.4 g/dl (32-36); MONO % 12.4 % (0-9); PLATELET COUNT 397 K/uL (130-400); RED BLOOD COUNT 4.22 M/uL (3.80-5.40); WHITE BLOOD COUNT W/O DIFF 3.5 K/uL (4.2-12.2)
[2017-04-19 10:09] LABS: BLOOD UREA NITROGEN 11 mg/dL (8-23); CREATININE 0.6 mg/dL (0.5-0.9); EST GLOMERULAR FILTRATION RATE > 60 mL/min; TOTAL PROTEIN 6.3 g/dL (6.6-8.7)
[2017-04-19 10:11] LABS: GLUCOSE,RANDOM 121 mg/dL (74-109)
[2017-04-19 10:14] LABS: ALB/GLOB RATIO 1.9 (1.1-1.8); ALBUMIN 4.1 g/dL (4.0-5.0); ALKALINE PHOSPHATASE 98 U/L (35-104); ALT/SGPT 23 U/L (<33); AST/SGOT 26 U/L (10.0-35.0)
[2017-04-19 10:37] LABS: ERYTHROCYTE SEDIMENTATION RATE 8 mm/hr (0-30)
[2017-04-19 11:03] LABS: INR 0.92; PARTIAL THROMBOPLASTIN TIME 25.5 SECONDS (24.5-39.1); PROTHROMBIN TIME (PATIENT) 9.9 SECONDS (9.5-12.1)
--- NOTE | 2017-04-19 11:20 | Emergency Department Record ---
History of Present Illness - General Chief complaint: Extremity Problem Stated complaint: RIGHT THIGH PAIN Time Seen by Provider: 04/19/17 09:43 Source: Patient Mode of Arrival: Wheelchair Limitations: No limitations - History of Present Illness Initial comments: pt has contd pain from herpetic neuralgia and sciatica. she is supposed to have surgery on her back soon. Onset/Timin -: Week(s) Location: Right, Thigh History of Same: Yes Severity scale (1-10): 10 Quality: Sharp Consistency: Constant Improves with: Nothing Worsens with: Exertion, Walking, Weight bearing Associated Symptoms: Denies other symptoms - Related Data Previous Rx's Medication Instructions Recorded Gabapentin [Neurontin] 300 mg PO TID #30 cap 04/19/17 Allergies Allergy/AdvReac Type Severity Reaction Status Date / Time bacitracin Allergy Unknown ITCHING Verified 04/19/17 09:31 [From NEOSPORIN ([id number])] bacitracin zinc Allergy Unknown ITCHING Verified 04/19/17 09:31 [From NEOSPORIN ([id number])] neomycin sulfate Allergy Unknown ITCHING Verified 04/19/17 09:31 [From NEOSPORIN ([id number])] polymyxin B Allergy Unknown ITCHING Verified 04/19/17 09:31 [From NEOSPORIN ([id number])] Travel Screening - Travel/Exposure Within Last 30 Days Have you traveled within the last 30 days?: No - Travel/Exposure Within Last Year Have you traveled outside the [place] in the last year?: No - Additonal Travel Details Have you been exposed to anyone with a communicable illness?: No - Travel Symptoms Symptom Screening: None Review of Systems Reviewed: No additional complaints except as noted below Constitutional: Reports: As per HPI. Denies: Chills, Fever, Malaise, Night sweats, Weakness, Weight change Eyes: Reports: As per HPI. Denies: Eye discharge, Eye pain, Photophobia, Vision change ENT: Reports: As per HPI. Denies: Congestion, Dental pain, Ear pain, Epistaxis , Hearing loss, Throat pain Respiratory: Reports: As per HPI. Denies: Cough, Dyspnea, Hemoptysis, Stridor, Wheezes Cardiovascular: Reports: As per HPI. Denies: Arrhythmia, Chest pain, Dyspnea on exertion, Edema, Murmurs, Orthopnea, Palpitations, Paroxysmal nocturnal dyspnea, Rheumatic Fever, Syncope Endocrine: Reports: As per HPI. Denies: Fatigue, Heat or cold intolerance, Polydipsia, Polyuria Gastrointestinal: Reports: As per HPI. Denies: Abdominal pain, Constipation, Diarrhea, Hematemesis, Hematochezia, Melena, Nausea, Vomiting Genitourinary: Reports: As per HPI. Denies: Abnormal menses, Discharge, Dyspareunia, Dysuria, Frequency, Hematuria, Incontinence, Retention, Urgency Musculoskeletal: Reports: As per HPI. Denies: Arthralgia, Back pain, Gout, Joint swelling, Myalgia, Neck pain Skin: Reports: As per HPI. Denies: Bruising, Change in color, Change in hair/ nails, Lesions, Pruritus, Rash Neurological: Reports: As per HPI. Denies: Abnormal gait, Confusion, Headache, Numbness, Paresthesias, Seizure, Tingling, Tremors, Vertigo, Weakness Psychiatric: Reports: As per HPI. Denies: Anxiety, Auditory hallucinations, Depression, Homicidal thoughts, Suicidal thoughts, Visual hallucinations Hematological/Lymphatic: Reports: As per HPI. Denies: Anemia, Blood Clots, Easy bleeding, Easy bruising, Swollen glands Past Medical History - SOCIAL HISTORY Smoking Status: Never smoker Alcohol Use: None Drug Use: None - RESPIRATORY Hx Respiratory Disorders: Yes Hx of CPAP: Yes (difficult time wearing mask-doesn't use it) - CARDIOVASCULAR Hx Cardio Disorders: Yes Comment:: "I have a bad back" - NEURO Hx Neuro Disorders: Yes Hx of Migraines: Yes - GI Hx GI Disorders: Yes Hx Diverticulitis: Yes Hx Irritable Bowel: Yes (daily Immodium helps alot) Hx Ulcer: Yes (bleeding ulcer 2011) - Hx Genitourinary Disorders: No - ENDOCRINE Hx Endocrine Disorders: Yes Hx Diabetes: Yes (last A1c 5.5) - MUSCULOSKELETAL Hx Musculoskeletal Disorders: Yes Hx Arthritis: Yes (all over) Hx Back Injury: Yes (fell down a flight of stairs 30 yrs ago) Comment:: right carpal tunnel syndrome - PSYCH Hx Psych Problems: Yes Hx Anxiety: Yes Hx Depression: Yes - HEMATOLOGY/ONCOLOGY Hx Hematology/Oncology Disorders: Yes Hx Anemia: Yes Family Medical History Any Significant Family History?: Yes Hx Cancer: Father, Mother Hx HTN: Brother/Sister Physical Exam - General General Appearance: Alert, Oriented x3, Cooperative, Mild distress - Head Head exam: Normal inspection - Eye Eye exam: Normal appearance, PERRL, EOMI Pupils: Normal accommodation - ENT ENT exam: Normal exam, Mucous membranes moist, Normal external ear exam, Normal orophraynx Ear exam: Normal external inspection. negative: External canal tenderness Nasal Exam: Normal inspection. negative: Discharge, Sinus tenderness Mouth exam: Normal external inspection, Tongue normal Teeth exam: Normal inspection. negative: Dental caries Throat exam: Normal inspection. negative: Tonsillar erythema, Tonsillar exudate - Neck Neck exam: Normal inspection, Full ROM. negative: Tenderness - Respiratory Respiratory exam: Normal lung sounds bilaterally. negative: Respiratory distress - Cardiovascular Cardiovascular Exam: Normal rhythm, Normal heart sounds, Tachycardia - GI/Abdominal GI/Abdominal exam: Soft, Normal bowel sounds. negative: Tenderness - Rectal Rectal exam: Deferred - exam: Deferred - Extremities Extremities exam: Normal inspection, Full ROM, Normal capillary refill. negative: Tenderness - Back Back exam: Reports: Normal inspection, Full ROM. Denies: Muscle spasm, Rash noted, Tenderness - Neurological Neurological exam: Alert, CN II-XII intact, Normal gait, Oriented X3 - Psychiatric Psychiatric exam: Normal affect, Normal mood - Skin Skin exam: Dry, Intact, Normal color, Warm, Other (multiple areas of ecchymosis on extremities) Distribution of rash: RUE, LUE, RLE, LLE Course Vital Signs 04/19/17 09:34 Temperature 98 F Pulse Rate 110 H Respiratory 18 Rate Blood Pressure 157/105 Pulse Ox 98 Medical Decision Making - Lab Data Result diagrams: 04/19/17 09:50 04/19/17 09:50 Lab Results 04/19/17 04/19/17 04/19/17 Range/Units 09:50 09:50 09:50 WBC 3.5 L (4.2-12.2) K/uL RBC 4.22 (3.80-5.40) M/uL Hgb 12.9 (11.6-16.0) gm/dl Hct 41.1 (35.0-47.0) % MCV 97.4 H (81-97) fl MCH 30.6 (27-33) pg MCHC 31.4 L (32-36) g/dl RDW 16.0 H (11.5-14.5) % Plt Count 397 (130-400) K/uL MPV 10.0 (7.4-10.4) fl Gran % 61.9 (47-80) % Lymphocytes % 17.5 (16-45) % Monocytes % 12.4 H (0-9) % Eosinophils % 7.6 H (0-6) % Basophils % 0.6 (0-6) % ESR 8 (0-30) mm/hr PT 9.9 (9.5-12.1) SECONDS INR 0.92 APTT 25.50 (24.5-39.1) SECONDS Sodium 142 (136-145) mmol/L Potassium 4.1 (3.4-4.5) mmol/L Chloride 104 (98-107) mmol/L Carbon Dioxide 26.0 (22-29) mmol/L Anion Gap 12.0 (7-16) BUN 11 (8-23) mg/dL Creatinine 0.6 (0.5-0.9) mg/dL Estimated GFR > 60 mL/min Random Glucose 121 H (74-109) mg/dL Calcium 9.1 (8.8-10.2) mg/dL Total Bilirubin 0.40 (0.2-1.0) mg/dL AST 26 (10.0-35.0) U/L ALT 23 (<33) U/L Alkaline Phosphatase 98 (35-104) U/L Total Protein 6.3 L (6.6-8.7) g/dL Albumin 4.1 (4.0-5.0) g/dL Globulin 2.2 (1.4-4.8) gm/dL Albumin/Globulin Ratio 1.9 H (1.1-1.8) Disposition Disposition: Discharge (post herpetic) Clinical Impression: Post herpetic neuralgia Sciatica Qualifiers: Laterality: right Qualified Code(s): M54.31 - Sciatica, right side Disposition: Home, Self-Care Condition: (1) Good Instructions: Sciatica (ED), Shingles (ED) Additional Instructions: follow up with dr sims. return sooner if worse. increase neurontin to 300mg 3x a day Prescriptions: Gabapentin [Neurontin] 300 mg PO TID #30 cap Quality - Quality Measures Quality Measures: N/A - Blood Pressure Screening Does Patient Have Any of the Following: No Blood Pressure Classification: Hypertensive Reading Systolic Measurement: 157 Diastolic Measurement: 105 Screening for High Blood Pressure: < First Hypertensive BP, F/U Documented > [ G8950] First Hypertensive Follow-up Interventions: Follow-up with rescreen GT 1 day and LT 4 weeks.
== END 2017-04-19 11:42 | disposition home or self-care (01) ==
LOC: ER 09:27
DX: B02.29 Other postherpetic nervous system involvement (principal); M54.31 Sciatica, right side; E11.9 Type 2 diabetes mellitus without complications; M79.651 Pain in right thigh
CPT/HCPCS: 80053; 85025; 85610; 85651; 85730; 96374; 99284; J1885

== ENCOUNTER 2017-06-07 04:30 | Emergency (ER) | payer MEDICARE ==
--- NOTE | 2017-06-07 04:44 | Emergency Department Record ---
Anxiety - General Stated Complaint: CANT SLEEP,INCREASED STRESS Time Seen by Provider: 06/07/17 04:31 Source: Patient Mode of Arrival: Ambulatory Limitations: No limitations - History of Present Illness Initial Comments: 72 yo female presents to ED for evaluation of increased stress and inability to sleep for several days. Patient reports that she recently switched to seeing Dr. Rubio last weeks, was told to stop her Ativan at that time. Patient reports that she was taking (1) tablet at night with her Gapapentin for sleep, states she "flushed all of my extra tablets down the toilet". Patient reports that a family member is in the ICU and that she has several back fractures that she is awaiting surgery. Due to her chronic pain symptoms and stress, she has taken numerous OTC medications that have not helped her sleep. Patient also sees a counselor for stress and anxiety, denies SI/HI today. MD Complaint: Anxiety -: Days(s) Place: Home Previous History of Same: Yes Severity: Moderate Quality: Constant Provoking factors: Emotional stress, Recent /illness of family member Improves With: Nothing Worsens With: Nothing Associated symptoms: Denies other symptoms - Related Data Allergies/Adverse Reactions: Allergies Allergy/AdvReac Type Severity Reaction Status Date / Time bacitracin Allergy Unknown ITCHING Verified 04/19/17 09:31 [From NEOSPORIN ([id number])] bacitracin zinc Allergy Unknown ITCHING Verified 04/19/17 09:31 [From NEOSPORIN ([id number])] neomycin sulfate Allergy Unknown ITCHING Verified 04/19/17 09:31 [From NEOSPORIN ([id number])] polymyxin B Allergy Unknown ITCHING Verified 04/19/17 09:31 [From NEOSPORIN ([id number])] Review of Systems Constitutional: Denies: Chills, Fever, Malaise, Night sweats Eyes: Denies: Eye discharge, Eye pain ENT: Denies: Congestion, Ear pain, Epistaxis Respiratory: Denies: Cough, Dyspnea Cardiovascular: Denies: Chest pain, Dyspnea on exertion Endocrine: Denies: Fatigue, Heat or cold intolerance Gastrointestinal: Denies: Abdominal pain, Nausea, Vomiting Genitourinary: Denies: Incontinence, Retention Musculoskeletal: Reports: Arthralgia, Back pain. Denies: Gout, Joint swelling Skin: Denies: Bruising, Change in color Neurological: Denies: Abnormal gait, Confusion, Headache, Seizure Psychiatric: Reports: Anxiety Hematological/Lymphatic: Denies: Anemia, Blood Clots Past Medical History - SOCIAL HISTORY Smoking Status: Never smoker Drug Use: None - RESPIRATORY Hx Respiratory Disorders: Yes Hx of CPAP: Yes (difficult time wearing mask-doesn't use it) - CARDIOVASCULAR Hx Cardio Disorders: Yes Comment:: "I have a bad back" - NEURO Hx Neuro Disorders: Yes Hx of Migraines: Yes - GI Hx GI Disorders: Yes Hx Diverticulitis: Yes Hx Irritable Bowel: Yes (daily Immodium helps alot) Hx Ulcer: Yes (bleeding ulcer 2011) - Hx Genitourinary Disorders: No - ENDOCRINE Hx Endocrine Disorders: Yes Hx Diabetes: Yes (last A1c 5.5) - MUSCULOSKELETAL Hx Musculoskeletal Disorders: Yes Hx Arthritis: Yes (all over) Hx Back Injury: Yes (fell down a flight of stairs 30 yrs ago) Comment:: right carpal tunnel syndrome - PSYCH Hx Psych Problems: Yes Hx Anxiety: Yes Hx Depression: Yes - HEMATOLOGY/ONCOLOGY Hx Hematology/Oncology Disorders: Yes Hx Anemia: Yes Family Medical History Hx Cancer: Father, Mother Hx HTN: Brother/Sister Physical Exam - General General Appearance: Alert, Oriented x3, Cooperative, Anxious Limitations: No limitations - Head Head exam: Atraumatic, Normocephalic, Normal inspection Head exam detail: negative: Abrasion, Contusion, Montoya's sign, General tenderness, Hematoma, Laceration - Eye Eye exam: Normal appearance. negative: Conjunctival injection, Periorbital swelling, Periorbital tenderness, Scleral icterus - ENT Ear exam: negative: Auricular hematoma, Auricular trauma Nasal Exam: negative: Active bleeding, Discharge, Dried blood, Foreign body Mouth exam: negative: Drooling, Laceration, Muffled voice, Tongue elevation - Neck Neck exam: Normal inspection. negative: Meningismus, Tenderness - Respiratory Respiratory exam: Normal lung sounds bilaterally. negative: Rales, Respiratory distress, Rhonchi, Stridor - Cardiovascular Cardiovascular Exam: Regular rate, Normal rhythm, Normal heart sounds - GI/Abdominal GI/Abdominal exam: Soft. negative: Rebound, Rigid, Tenderness - Rectal Rectal exam: Deferred - exam: Deferred - Extremities Extremities exam: Other (Ecchymosis to the dorsum of the wrist, FROM, patient reports "I'm not sure what happened"). negative: Calf tenderness, Pedal edema, Tenderness - Neurological Neurological exam: Alert, Normal gait, Oriented X3 - Psychiatric Psychiatric exam: Anxious - Skin Skin exam: Normal color. negative: Abrasion Type of lesion: negative: abrasion Course - Reevaluation(s) Reevaluation #1: 06/07/17 04:42 MAPS reviewed: Lorazepam #90 filled 05/11/17 Previous prescriptions reviewed, appears similar number have been filled monthly. Patient reports that she was prescribed Ativan (3) times daily but only took the medication (1) time daily, reports that she "stockpiled" hundred's of tablets that she flushed down the toilet. Will dispense (1) ativan tablet from the ED with instructions to call Dr. Rubio later today to determine a long- term plan for her anxiety and insomnia symptoms. Patient agrees with the plan as discussed. Disposition Disposition: Discharge Clinical Impression: Anxiety Insomnia Qualifiers: Insomnia type: unspecified Qualified Code(s): G47.00 - Insomnia, unspecified Disposition: Home, Self-Care Condition: (2) Stable Instructions: Insomnia (ED) Additional Instructions: Return to ED if your symptoms worsen or if you have any concerns. Call Dr. Rubio this morning for further evaluation of your anxiety and insomnia symptoms. Time of Disposition: 05:09 Quality - Quality Measures Quality Measures: N/A - Blood Pressure Screening Does Patient Have Any of the Following: Active Dx of HTN Blood Pressure Classification: Hypertensive Reading Systolic Measurement: 164 Diastolic Measurement: 103 Screening for High Blood Pressure: Patient Exclusion, Hx of HTN [G9744]
[2017-06-07] MEDS ORDERED: LORAZEPAM 0.5 MG TABLET PO ONE (05:09)
== END 2017-06-07 05:32 | disposition home or self-care (01) ==
LOC: ER 04:30
DX: F43.20 Adjustment disorder, unspecified (principal); G47.00 Insomnia, unspecified; I10 Essential (primary) hypertension; E11.9 Type 2 diabetes mellitus without complications
CPT/HCPCS: 99282

== ENCOUNTER 2017-09-15 10:38 | Day surgery (SDC) | payer MEDICARE ==
[2017-09-08 09:41] LABS: BASO % 0.4 % (0-6); EOS % 1.9 % (0-6); GRAN % 68.6 % (47-80); HEMATOCRIT 43.4 % (35.0-47.0); HEMOGLOBIN 13.7 gm/dl (11.6-16.0); LYMPH % 16.4 % (16-45); MEAN CELL VOLUME 94.8 fl (81-97); MEAN CORPUSCULAR HEMOGLOBIN 29.9 pg (27-33); MEAN CORPUSCULAR HGB CONC 31.6 g/dl (32-36); MEAN PLATELET VOLUME 11.4 fl (7.4-10.4); MONO % 12.7 % (0-9); PLATELET COUNT 441 K/uL (130-400); RED BLOOD COUNT 4.58 M/uL (3.80-5.40); RED CELL DISTRIBUTION WIDTH 17.6 % (11.5-14.5); WHITE BLOOD COUNT W/O DIFF 4.8 K/uL (4.2-12.2)
[2017-09-08 10:03] LABS: BLOOD UREA NITROGEN 11 mg/dL (8-23); CREATININE 0.6 mg/dL (0.5-0.9); EST GLOMERULAR FILTRATION RATE > 60 mL/min; GLUCOSE,RANDOM 119 mg/dL (74-109)
[~2017-09-15 10:38] MED LIST changes: +CEFAZOLIN 2 Gram 2 GM/50 ML BAG IVPB ONE
[2017-09-15] MEDS ORDERED: KETOROLAC 30 MG/ML VIAL IVP ONE (10:39)
[2017-09-15] MEDS ORDERED: ROPIVACAINE HCL (NAROPIN) /PF 5MG/ML 20ML VIAL IV ONE (10:39)
[2017-09-15] MEDS ORDERED: LIDOCAINE 2% MDV (20MG/ML) 20ML VIAL IV ONE (10:39)
[2017-09-15] MEDS ORDERED: FENTANYL PF 100MCG/2ML VIAL IV ONE (10:39)
[2017-09-15] MEDS ORDERED: MIDAZOLAM HCL 2MG/2ML VIAL IV ONE (10:39)
[2017-09-15] MEDS ORDERED: EPHEDRINE SULFATE 50 MG/ML ML IV ONE (10:39)
[2017-09-15] MEDS ORDERED: SEVOFLURANE 250 ML INH ONE (10:39)
[2017-09-15] MEDS ORDERED: DEXAMETHASONE 4 MG/ML 1ML VIAL IVP ONE (10:39)
[2017-09-15] MEDS ORDERED: PROPOFOL 10 MG/ML VIAL IV ONE (10:39)
--- NOTE | 2017-09-16 15:20 | Operative Note ---
DATE OF SURGERY: 09/15/2017 Surgeon: Kirby Ortega DO PREOPERATIVE DIAGNOSIS: Tear of the ulnar collateral ligament, metacarpophalangeal joint, right thumb. POSTOPERATIVE DIAGNOSIS: Tear of the ulnar collateral ligament, metacarpophalangeal joint, right thumb. OPERATION: Reconstruction ulnar collateral ligament, metacarpophalangeal joint, right thumb. DESCRIPTION OF PROCEDURE: This 72-year-old female was taken to the operating room and placed in the supine position on the operating room table. General anesthetic was administered. The right upper extremity was elevated. It was prepped with Hibiclens and draped in the usual sterile fashion. It was exsanguinated and the tourniquet inflated to 250 mmHg. An incision was made along the ulnar aspect of the thumb centering over the metacarpophalangeal joint. Dissection carried down through the skin and subcutaneous tissue. Radial nerve identified and retracted safely. The incision was made on the capsule down to the joint. The stump of the ulnar collateral ligament was easily identified and it was scarred and retracted and most of the body of the ligament was removed. The insertion site was easily identified, and a 3.0 mm drill hole was made in the distal aspect of the thumb metacarpal after 2 guidewires had been placed, one in the thumb at the drill site and the second in the proximal aspect of the proximal phalanx and slightly palmar to the midline. The image intensifier was brought in to confirm that these pins were parallel. We subsequently drilled the hole and took a 1.5 mm labral tape through the 3.5 DX anchor. This was then easily advanced into the hole and the anchor advanced into the metacarpal with a good solid fit. Subsequently the drill hole was made in the proximal phalanx over the guidewire and then the labral tape was laid over the joint with the joint reduced and a second 3.5 DX SwiveLock anchor was advanced into the hole and pushed to the stop and subsequently the anchor was inserted which gave us a nice tight fit and restored stability to the joint. This was done with the joint in slight 20-30 degrees of flexion. After completion, the repair was seen to be solid and there was no evidence of instability of the joint. The wound was irrigated with lactated Ringer's solution. The thumb did have good range of motion and subsequently the capsule was repaired with 4-0 Vicryl and the skin was closed with a running interlocking 4-0 nylon suture. Sterile dressings with plaster splint immobilization were applied and the patient was taken to the recovery room in satisfactory condition. GROSS PATHOLOGY: This patient demonstrated disruption of the ulnar collateral ligament with gross instability of the thumb at the metacarpophalangeal joint which was reconstructed in the manner described above using 2 DX 3.5 SwiveLock anchors Arthrex and a 1.5 mm labral tape. CC: MD LUIS MIGUEL [place]am[place]
== END 2017-09-15 13:55 | disposition home or self-care (01) ==
LOC: SUR 10:38
PROVIDERS: ATTEND Orthopaedic Surgery
DX: S63.641A Sprain of metacarpophalangeal joint of right thumb, initial encounter (principal); I10 Essential (primary) hypertension
CPT/HCPCS: 26540; 01810; 85025; 80048; 76000; J1885; J3010; J0690; J2795

== ENCOUNTER 2018-03-23 08:43 | Emergency (ER) | payer MEDICARE ==
--- NOTE | 2018-03-23 09:14 | Emergency Department Record ---
History of Present Illness - General Chief Complaint: General Stated Complaint: CHEST PRESSURE Time Seen by Provider: 03/23/18 08:52 Source: Patient Mode of Arrival: Ambulatory Limitations: No limitations - History of Present Illness Initial comments: The patient is here due to having CP 2 weeks ago. It was a sharp stabbing retrosternal pain that was non-radiating. It did occur late at night and did not go to her arm, neck or back. There was no SOB, EUGENIA, or sweating with it. The pain did resolve with antacids and lasted less than 30 minutes. Since the patient has been pain free with no CP with exertion, RUIZ, or orthopnea. The patient did make an appointment with her PCP for it and did see someone in the [place] [facility] yesterday. She told them about the issues 2 weeks ago and she was told by them to go to the ER for an EKG so that is why she is here. Onset/Timin -: Week(s) - Related Data Allergies Allergy/AdvReac Type Severity Reaction Status Date / Time bacitracin Allergy Unknown ITCHING Verified 04/19/17 09:31 [From NEOSPORIN ([id number])] bacitracin zinc Allergy Unknown ITCHING Verified 04/19/17 09:31 [From NEOSPORIN ([id number])] neomycin sulfate Allergy Unknown ITCHING Verified 04/19/17 09:31 [From NEOSPORIN ([id number])] polymyxin B Allergy Unknown ITCHING Verified 04/19/17 09:31 [From NEOSPORIN ([id number])] Travel Screening - Travel/Exposure Within Last 30 Days Have you traveled within the last 30 days?: No Review of Systems Constitutional: Denies: Chills, Fever Eyes: Denies: Eye discharge ENT: Denies: Congestion Respiratory: Denies: Cough, Dyspnea Cardiovascular: Reports: Chest pain. Denies: Arrhythmia Endocrine: Denies: Fatigue Gastrointestinal: Denies: Diarrhea Genitourinary: Denies: Dysuria Musculoskeletal: Denies: Arthralgia Skin: Denies: Bruising Past Medical History - SOCIAL HISTORY Smoking Status: Never smoker Alcohol Use: None Drug Use: None - RESPIRATORY Hx Respiratory Disorders: No Hx Sleep Apnea: (denies) Hx of CPAP: (denies) - CARDIOVASCULAR Hx Cardio Disorders: Yes Hx Hypertension: Yes Hx Palpitations: Yes (rare) Comment:: "I have a bad back" - NEURO Hx Neuro Disorders: No Hx of Migraines: No Comment:: shingles right thigh - GI Hx GI Disorders: Yes Hx Diverticulitis: Yes Hx Reflux: Yes Hx Irritable Bowel: No (denies) Hx Ulcer: Yes (bleeding ulcer 2011) - Hx Genitourinary Disorders: No - ENDOCRINE Hx Endocrine Disorders: Yes Hx Diabetes: Yes (A1C between 5-6 no meds) - MUSCULOSKELETAL Hx Musculoskeletal Disorders: Yes Hx Arthritis: Yes (all over) Hx Back Injury: Yes (fell down a flight of stairs 30 yrs ago) Comment:: having back surgery in September - PSYCH Hx Psych Problems: Yes Hx Anxiety: No (denies) Hx Depression: Yes - HEMATOLOGY/ONCOLOGY Hx Hematology/Oncology Disorders: Yes Hx Anemia: Yes Family Medical History Any Significant Family History?: Yes Hx Cancer: Father, Mother Hx HTN: Brother/Sister Physical Exam - General General Appearance: Alert, Oriented x3, Cooperative, No acute distress - Head Head exam: Atraumatic, Normocephalic, Normal inspection - Eye Eye exam: Normal appearance - ENT Throat exam: Normal inspection. negative: Tonsillar erythema, Tonsillar exudate - Neck Neck exam: Normal inspection, Full ROM. negative: Tenderness - Respiratory Respiratory exam: Normal lung sounds bilaterally. negative: Respiratory distress - Cardiovascular Cardiovascular Exam: Regular rate, Normal rhythm, Normal heart sounds - GI/Abdominal GI/Abdominal exam: Soft, Normal bowel sounds. negative: Tenderness - Extremities Extremities exam: Normal inspection, Full ROM, Normal capillary refill. negative: Tenderness - Back Back exam: Reports: Normal inspection - Neurological Neurological exam: Alert. negative: Motor sensory deficit Course Vital Signs 03/23/18 08:48 Temperature 98.6 F Pulse Rate 95 H Respiratory 20 Rate Blood Pressure 168/92 Pulse Ox 97 - Reevaluation(s) Reevaluation #1: the patient is doing very well at this time. I did discuss the lab work and EKG and CXR with the patient. I also discussed the Cardiology consultation that I will be placing and the need for the patient to F/U next week. 03/23/18 10:03 Medical Decision Making - Data Complexity MDM Data: Labs Ordered and/or Reviewed, X-Ray Ordered and/or Reviewed, EKG Ordered and/or Reviewed - Lab Data Result diagrams: 03/23/18 08:55 03/23/18 08:55 - EKG Data -: EKG Interpreted by Me EKG: No Acute Changes, Normal EKG, Unchanged From Previous - Radiology Data Radiology results: Report reviewed (CXR: Neg per Rad. Old Comp fx's.) Disposition Disposition: Discharge Clinical Impression: Atypical chest pain Disposition: Home, Self-Care Condition: (2) Stable Instructions: Chest Pain (ED) Additional Instructions: Please take Prilosec OTC for 2 weeks and please see your family doctor next week to discuss recent events and the anxiety. Please see Dr. Huerta next week in the Specialty clinic. Return to the ER for any pain, trouble breathing or fevers. Referrals: [facility] [Provider Group] Forms: Patient Portal Access Time of Disposition: 10:10 Quality - Quality Measures Quality Measures: N/A - Blood Pressure Screening View Details: Yes Does Patient Have Any of the Following: Active Dx of HTN Blood Pressure Classification: Hypertensive Reading Systolic Measurement: 168 Diastolic Measurement: 92 Screening for High Blood Pressure: Patient Exclusion, Hx of HTN [G9744]
[2018-03-23 09:28] LABS: HEMATOCRIT 41.4 % (35.0-47.0); HEMOGLOBIN 13.4 gm/dl (11.6-16.0); MEAN CELL VOLUME 96.1 fl (81-97); MEAN CORPUSCULAR HEMOGLOBIN 31.1 pg (27-33); MEAN CORPUSCULAR HGB CONC 32.4 g/dl (32-36); MEAN PLATELET VOLUME 11.5 fl (7.4-10.4); PLATELET COUNT 434 K/uL (130-400); RED BLOOD COUNT 4.31 M/uL (3.80-5.40); WHITE BLOOD COUNT W/O DIFF 9.7 K/uL (4.2-12.2)
[2018-03-23 09:38] LABS: BLOOD UREA NITROGEN 14 mg/dL (8-23); CREATININE 0.7 mg/dL (0.5-0.9); EST GLOMERULAR FILTRATION RATE > 60 mL/min
[2018-03-23 09:41] LABS: GLUCOSE,RANDOM 131 mg/dL (74-109)
[2018-03-23 09:44] LABS: CREATINE PHOSPHOKINASE 49 U/L (26-192)
[2018-03-23 09:47] LABS: CKMB 1.9 ng/mL (<3.77)
--- NOTE | 2018-03-24 14:19 | RADIOLOGY REPORT ---
EXAM: CHEST, TWO VIEWS HISTORY: CHEST PRESSURE FOR TWO WEEKS. TECHNIQUE: Two views of the chest were obtained. Comparison: Chest radiograph 07/03/16. FINDINGS: The cardiac silhouette is within normal size limits. The pulmonary vasculature appears nondilated. Minimal atelectasis along the right lung minor fissure otherwise no focal pulmonary opacities. No pleural effusion or pneumothorax. Severe thoracolumbar junction anteriorly wedged vertebral body compression deformity which appears similar from prior. There is suggestion of new compression deformity status post vertebroplasty at the vertebral level immediately below this. There is also a mild compression deformity in the mid thoracic spine which was not clearly seen on prior. IMPRESSION: 1. NO ACUTE LUNG FINDINGS. 2. MILD AGE INDETERMINATE MID THORACIC VERTEBRAL BODY COMPRESSION DEFORMITY WHICH APPEARS NEW FROM COMPARISON RADIOGRAPH ON 07/03/16. ADDITIONAL CHRONIC STABLE WELL PREVIOUSLY TREATED VERTEBRAL COMPRESSION DEFORMITIES ARE NOTED NEAR THE THORACOLUMBAR JUNCTION. JOB NUMBER: [id number] MTDD
== END 2018-03-23 10:30 | disposition home or self-care (01) ==
LOC: ER 08:43
DX: R07.89 Other chest pain (principal); I10 Essential (primary) hypertension; E11.9 Type 2 diabetes mellitus without complications
CPT/HCPCS: 71046; 80048; 82550; 82553; 84484; 85027; 93005; 93010; 99284